=== PATIENT | female | born 1980 ===

== ENCOUNTER 2018-01-06 10:45 | Emergency (ER) | payer OTHER ==
[2018-01-06 11:22] VITALS: BP 139/66
--- NOTE | 2018-01-06 11:35 | UC ---
Respiratory Complaint HPI - HPI Summary HPI Summary: The patient is a 37-year-old female with the onset of a cough last night. Unsure with a cough she has had some palpitations. She describes her palpitations as being 2 beats that are quicker than normal followed by a pause. These have occurred both at rest and with exertion. She has had no fever or chills. Denies any chest pain other than the sensation of her heart flutter. Should she denies fever or chills. Her cough is nonproductive. She has had no syncope or near syncope. - History of Current Complaint Chief Complaint: UCRespiratory Stated Complaint: COUGH/CHEST COMPLAINT Time Seen by Provider: 01/06/18 11:29 Hx Obtained From: Patient Hx Last Menstrual Period: mirena IUD Onset/Duration: Gradual Onset, Lasting Hours Timing: Constant Severity Initially: Mild Severity Currently: Mild Pain Intensity: 0 Pain Scale Used: 0-10 Numeric Character: Cough: Nonproductive Aggravating Factors: Nothing Alleviating Factors: Nothing Associated Signs And Symptoms: Positive: Negative - Allergies/Home Medications Allergies/Adverse Reactions: Allergies Allergy/AdvReac Type Severity Reaction Status Date / Time amoxicillin Allergy See Comment Verified 01/06/18 11:04 Home Medications: Home Medications Levonorgestrel (Iud) [Mirena IUD] 1 implant ONCE 01/06/18 [History Confirmed ] PMH/Surg Hx/FS Hx/Imm Hx Previously Healthy: Yes - Surgical History Surgical History: Yes Surgery Procedure, Year, and Place: [facility], 11/21/2005 - Family History Known Family History: Positive: Hypertension - Social History Alcohol Use: Occasionally Substance Use Type: None Smoking Status (MU): Former Smoker Type: Cigarettes Length of Time of Smoking/Using Tobacco: 1/2 PPD x15 years Have You Smoked in the Last Year: No When Did the Patient Quit Smoking/Using Tobacco: 2012 Review of Systems Constitutional: Negative Skin: Negative Eyes: Negative ENT: Negative Respiratory: Cough Cardiovascular: Palpitations Gastrointestinal: Negative Genitourinary: Negative Motor: Negative Neurovascular: Negative Musculoskeletal: Negative Neurological: Negative Psychological: Negative Is Patient Immunocompromised?: No All Other Systems Reviewed And Are Negative: Yes Physical Exam Triage Information Reviewed: Yes Appearance: Well-Appearing, No Pain Distress, Well-Nourished Vital Signs: Initial Vital Signs Temp 97.3 F 01/06/18 11:04 Pulse 69 01/06/18 11:04 Resp 18 01/06/18 11:04 BP 139/66 01/06/18 11:04 Pulse Ox 99 01/06/18 11:04 Vital Signs Reviewed: Yes Eyes: Positive: Conjunctiva Clear ENT: Positive: Hearing grossly normal. Negative: Nasal drainage, Muffled voice , Dental tenderness, Uvula midline Neck: Positive: Nontender, No Lymphadenopathy Respiratory: Positive: Lungs clear, Normal breath sounds, No respiratory distress, No accessory muscle use Cardiovascular: Positive: RRR, No Murmur. Negative: Tachycardia, Bradycardia Abdomen Description: Positive: Nontender, No Organomegaly Musculoskeletal: Positive: ROM Intact, No Edema Neurological Exam: Normal Neurological: Positive: Alert Psychological Exam: Normal Skin Exam: Normal UC Diagnostic Evaluation - Laboratory O2 Sat by Pulse Oximetry: 99 - normal/not hypoxic - Radiology Xray Interpretation: No Acute Changes - CXR Radiology Interpretation Completed By: Radiologist - EKG Cardiac Rate: NL Cardiac Rhythm: Sinus: Normal Ectopy: None ST Segment: Normal Respiratory Course/Dx - Differential Dx/Diagnosis Provider Diagnoses: palpitations Discharge - Sign-Out/Discharge Documenting (check all that apply): Patient Departure - Discharge Plan Condition: Stable Disposition: HOME Patient Education Materials: Heart Palpitations (ED) Forms: *Work Release Referrals: Michelle Yates NP [Primary Care Provider] - As Soon As Possible (recheck nexk week if symptoms persist) Additional Instructions: recheck for new or worsening symptoms - Billing Disposition and Condition Condition: STABLE Disposition: Home
--- NOTE | 2018-01-06 11:48 | RAD ---
HISTORY: cough COMPARISONS: None VIEWS: 4: Frontal dual-energy and lateral views of the chest. FINDINGS: CARDIOMEDIASTINAL SILHOUETTE: The cardiomediastinal silhouette is normal. VAISHALI: The vaishali are normal. PLEURA: The costophrenic angles are sharp. No pleural abnormalities are noted. LUNG PARENCHYMA: The lungs are clear. ABDOMEN: The upper abdomen is clear. There is no subphrenic gas. BONES AND SOFT TISSUES: No bone or soft tissue abnormalities are noted. OTHER: None. IMPRESSION: NO ACTIVE CARDIOPULMONARY DISEASE.
== END 2018-01-06 12:16 | disposition home or self-care (01) ==
LOC: UCCORT 10:45
DX: R00.2 Palpitations (principal); Z88.0 Allergy status to penicillin; Z87.891 Personal history of nicotine dependence
CPT/HCPCS: 71046; 93005; 99201; G0463